=== PATIENT | female | born 1975 | race Two or more races ===

== ENCOUNTER 2016-11-16 06:06 | Emergency (ER) | payer MEDICAID ==
[~2016-11-16] VITALS: Ht 157.5 cm; Wt 67.5 kg
[~2016-11-16 06:06] MED LIST: ALBU8.5H5 INH; ALPR0.25; HYDR-3240 PO; IBUP800T PO; OXYC-302 PO; SUMA25TA3; TOPI50TA35; VITAMIN D
[2016-11-16] MEDS ORDERED: SODIUM CHLORIDE 0.9% 1,000 ML IV ONE (06:26)
[2016-11-16] MEDS ORDERED: MORPHINE SULFATE 4 MG/ML, 1ML IVPush PRN (06:30)
[2016-11-16] MEDS ORDERED: DIPHENHYDRAMINE 50 MG/ML, 1ML IVPush ONE (06:30)
[2016-11-16] MEDS ORDERED: SODIUM CHLORIDE FLUSH 10ML SYR IVF ONE (06:30)
[2016-11-16] MEDS ORDERED: ONDANSETRON 2MG/ML, 2ML IVPush ONE (06:30)
[2016-11-16] MEDS ORDERED: SODIUM CHLORIDE 0.9% 1,000ML IVBOLUS ONE (06:30)
[2016-11-16 06:49] LABS: HEMATOCRIT 42.8 % (34.6-47.8); HEMOGLOBIN 14.7 g/dL (11.7-16.4); WHITE BLOOD COUNT 5.3 x10^3/uL (3.4-10)
[2016-11-16] MEDS ORDERED: MORPHINE SULFATE 4 MG/ML, 1ML ONE (06:55)
[2016-11-16] MEDS ORDERED: ONDANSETRON 2MG/ML, 2ML ONE (06:56)
[2016-11-16] MEDS ORDERED: DIPHENHYDRAMINE 50 MG/ML, 1ML ONE (06:56)
[2016-11-16 07:00] LABS: ASPARTATE AMINO TRANSFERASE 14 U/L (15-37); BLOOD UREA NITROGEN 7 mg/dL (7-18)
[2016-11-16 08:44] VITALS: BP 134/87
== END 2016-11-16 08:45 | disposition home or self-care (01) ==
LOC: ED 06:53
DX: G43.009 Migraine without aura, not intractable, without status migrainosus (principal); J01.00 Acute maxillary sinusitis, unspecified
CPT/HCPCS: 36415; 70450; 80053; 83605; 85025; 96361; 96374; 96375; 99285; J1200; J2405; J7030

== ENCOUNTER 2019-03-07 09:13 | Emergency (ER) | payer BC ==
[~2019-03-07] VITALS: Ht 157.5 cm; Wt 67.0 kg
[~2019-03-07 09:13] MED LIST changes: +IBUP-1223 PO; -IBUP800T PO; +MULT-53 PO
[2019-03-07] MEDS ORDERED: ALBUTEROL SULFATE 2.5 MG/3 ML NPPB ONE (09:30)
[2019-03-07] MEDS ORDERED: ALBUTEROL SULFATE 2.5 MG/3 ML ONE (09:32)
--- NOTE | 2019-03-07 09:35 | NUR ---
TASK RN: PT MEDICATED PER EMAR. PT TOLERATED WELL.
--- NOTE | 2019-03-07 09:50 | NUR ---
PT PRESENTS TO ED WITH C/O COUGH, SORE THROAT, FEVER/CHILLS X 6 DAYS. PT A&O, RESPS EVEN AND UNLABORED. ATTACHED TO BP AND SPO2 MONITORS. PT HAS HAD RT TX DONE, STATES SYMPTOMS HAVE IMPROVED. CALL LIGHT IN REACH. AWAITING CXR RESULTS AND DISPO.
[2019-03-07 10:26] VITALS: BP 107/70
--- NOTE | 2019-03-07 10:27 | NUR ---
PT GIVEN DC INSTRUCTIONS AND SCRIPT, EDUCATED REGARDING RX FOR ALBUTEROL, ZITHROMAX, AND PREDNISONE. PT A&O, RESPS EVEN AND UNLABORED. PT AMB TO DC DESK WITH STEADY GAIT, ALL QUESTIONS ANSWERED.
== END 2019-03-07 10:27 ==
LOC: ED 10:21
DX: J45.909 Unspecified asthma, uncomplicated (principal); J20.9 Acute bronchitis, unspecified; Z90.49 Acquired absence of other specified parts of digestive tract
CPT/HCPCS: 71045; 94640; 99283; J7512; J7613

== ENCOUNTER 2019-10-12 05:34 | Emergency (ER) | payer BC, OTHER ==
[~2019-10-12] VITALS: Ht 157.5 cm; Wt 66.8 kg
--- NOTE | 2019-10-12 05:52 | NUR ---
PT AMBULATORY TO RESTROOM TO OBTAIN A URINE SAMPLE. URINE BLOODY. PT REPORTS SHE WAS JUST TREATED FOR A UTI, FINISHED ABX AND THE SYMPTOMS HAVE RETURNED AND ARE WORSE. SHE IS C/O BILATERAL FLANK PAIN, URINARY URGENCY AND PAIN DURING URINATION. PT ALSO REPORTING HEMATURIA. PT APPERS UNCOMFORTABLE, UNABLE TO SIT ON GURNEY, STATES SHE FEELS BETTER STANDING. PT CHANGED INTO A GOWN AND PROVIDED WITH WARM BLANKETS. DR. VELEZ AT BEDSIDE EVALUATING PT. URINE LABELED, AND SENT TO LAB
[2019-10-12] MEDS ORDERED: PHENAZOPYRIDINE 200 MG TABLET PO ONE (06:00)
[2019-10-12] MEDS ORDERED: KETOROLAC 30 MG/1 ML IM ONE (06:00)
[2019-10-12] MEDS ORDERED: PHENAZOPYRIDINE 200 MG TABLET ONE (06:03)
[2019-10-12] MEDS ORDERED: KETOROLAC 30 MG/1 ML ONE (06:03)
[2019-10-12 06:04] LABS: MICROSCOPIC INDICATED
--- NOTE | 2019-10-12 06:12 | NUR ---
PT MEDICATED PER EMAR, 5 RIGHTS ADDRESSED.
--- NOTE | 2019-10-12 06:15 | NUR ---
LAB AT BEDSIDE
[2019-10-12 06:25] LABS: BASOPHILS # (AUTO) 0.01 x10^3/uL (0-0.1); BASOPHILS % (AUTO) 0 % (0-1); EOSINOPHILS # (AUTO) 0.07 x10^3/uL (0-0.4); EOSINOPHILS % (AUTO) 1 % (1-7); LYMPHOCYTES % (AUTO) 9 % (22-44); MD NO; MEAN CORPUSCULAR HEMOGLOBIN 30.4 pg (27.0-34.8); MEAN CORPUSCULAR HGB CONC 33.5 g/dL (32.4-35.8); MEAN CORPUSCULAR VOLUME 90.7 fL (80-100); MONOCYTES # (AUTO) 0.44 x10^3/uL (0.2-0.8); MONOCYTES % (AUTO) 4 % (2-9); NEUTROPHILS # (AUTO) 8.73 x10^3/uL (1.8-6.8); NEUTROPHILS % (AUTO) 86 % (42-75); PLATELET COUNT 229 x10^3/uL (130-400); RED BLOOD COUNT 4.49 x10^6/uL (3.82-5.3); RED CELL DISTRIBUTION WIDTH 12.8 % (9.6-15.2)
[2019-10-12 06:35] LABS: ALBUMIN 3.4 g/dL (3.4-5.0); ANION GAP 7 mmol/L (5-15); CALCIUM 8.4 mg/dL (8.5-10.1); CHLORIDE 111 mmol/L (98-107); CREATININE 0.71 mg/dL (0.55-1.02)
--- NOTE | 2019-10-12 07:08 | NUR ---
report received from sonya amin.
--- NOTE | 2019-10-12 07:11 | NUR ---
REPORT TO [facility].
--- NOTE | 2019-10-12 07:21 | NUR ---
pt to ct at this time.
--- NOTE | 2019-10-12 08:20 | NUR ---
PT REATING IN [facility] [place]. PT'S AOX4. RESPS EVEN AND UNLABORED. AWAITING DC.
[2019-10-12 09:01] VITALS: BP 116/70
--- NOTE | 2019-10-12 09:15 | NUR ---
Patient given discharge instructions and they have confirmed that they understand the instructions. Patient ambulatory with steady gait.
== END 2019-10-12 09:16 | disposition home or self-care (01) ==
LOC: ED 06:04
DX: N30.01 Acute cystitis with hematuria (principal); M54.5 Low back pain; R30.0 Dysuria; J45.909 Unspecified asthma, uncomplicated; Z90.89 Acquired absence of other organs; Z90.49 Acquired absence of other specified parts of digestive tract; Z98.51 Tubal ligation status
CPT/HCPCS: 36415; 74176; 80048; 81001; 82040; 84703; 85025; 87086; 96372; 99284; J1885

== ENCOUNTER 2020-02-03 19:00 | Emergency (ER) | payer OTHER ==
[~2020-02-03] VITALS: Ht 157.5 cm; Wt 66.0 kg
[2020-02-03 19:14] VITALS: BP 145/85
--- NOTE | 2020-02-03 19:20 | NUR ---
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
[2020-02-03 20:05] LABS: ALANINE AMINOTRANSFERASE 27 U/L (12-78); ALBUMIN 3.7 g/dL (3.4-5.0); ANION GAP 5 mmol/L (5-15); BASOPHILS % (AUTO) 1 % (0-1); CALCIUM 8.9 mg/dL (8.5-10.1); CHLORIDE 105 mmol/L (98-107); CREATININE 0.82 mg/dL (0.55-1.02); EOSINOPHILS % (AUTO) 1 % (1-7); LYMPHOCYTES % (AUTO) 25 % (22-44); MEAN PLATELET VOLUME 8.6 fL (7.4-10.4); MONOCYTES % (AUTO) 8 % (2-9); NEUTROPHILS % (AUTO) 66 % (42-75); PLATELET COUNT 192 x10^3/uL (130-400)
[2020-02-03 20:10] LABS: ALKALINE PHOSPHATASE 77 U/L (45-117); BILIRUBIN,TOTAL 0.4 mg/dL (0.2-1.0); TOTAL PROTEIN 7.9 g/dL (6.4-8.2); TROPONIN I < 0.015 ng/mL (0.000-0.045)
[2020-02-03 20:14] LABS: MD NO
--- NOTE | 2020-02-03 20:51 | NUR ---
patient decided to leave. signed AMA form.
== END 2020-02-03 20:53 | disposition home or self-care (01) ==
LOC: ED 19:30
DX: R06.00 Dyspnea, unspecified (principal); R07.89 Other chest pain; R11.0 Nausea
CPT/HCPCS: 36415; 71045; 80053; 83690; 84484; 85025; 93005; 99285

== ENCOUNTER → 2020-02-28 | Outpatient (CLI) | payer OTHER ==
[~2020-02-28] MED LIST changes: +CEFD300C37 PO; +DOXY100T PO; +PRED20TA PO
== END | disposition home or self-care (01) ==
LOC: CFH 11:35
PROVIDERS: ATTEND Family Medicine
DX: R05 Cough (principal)
CPT/HCPCS: 71046

== ENCOUNTER 2020-08-04 11:09 | Outpatient (CLI) | payer OTHER ==
[~2020-08-04 11:09] MED LIST changes: +HYDR-2214 PO; -HYDR-3240 PO; -OXYC-302 PO; +OXYC1TAB12 PO
== END 2020-08-04 23:59 | disposition home or self-care (01) ==
LOC: CFH 11:09
PROVIDERS: ATTEND Family Medicine
DX: R05 Cough (principal)
CPT/HCPCS: 71046

== ENCOUNTER → 2020-09-28 | Outpatient (CLI) | payer OTHER ==
[~2020-09-28] MED LIST changes: -OXYC1TAB12 PO; +OXYC1TAB14 PO
== END | disposition home or self-care (01) ==
LOC: CFH 13:55
PROVIDERS: ATTEND Obstetrics & Gynecology
DX: N64.4 Mastodynia (principal)
CPT/HCPCS: 77062; 77066; G0279